=== PATIENT | female | born 1975 | race Caucasian/White ===

== ENCOUNTER 2017-05-08 17:35 | Emergency (ER) | payer SELFPAY ==
--- NOTE | ~2017-05-08 | ER ---
PATIENT'S NAME: KAYLYN OROURKE [facility] AGE: 42 Y [address] ROOM: [place] [id number] LOCATION: [facility] ADMIT DATE: 05/08/2017 ER/Outpatient Report DISCHARGE DATE: 05/08/2017 FAMILY PHYSICIAN: Yesy Jain APRN ATTENDING PHYSICIAN: Garret Foster TIME SEEN: 1750 hours. CHIEF COMPLAINT: Low back pain. HISTORY OF PRESENT ILLNESS: The patient is a 42-year-old female, who presents with back pain, started today. Denies any recent injury. She has had no radicular pain to her legs. No numbness or tingling to her legs. She denies any loss of tone or control of her bladder or bowel. She has had some previous history of chronic back pain. ALLERGIES: NO MEDICINAL ALLERGIES. HOME MEDICATIONS: Include: 1. Tylenol Extra Strength. 2. Levothyroxine. 3. Trazodone. 4. Hydroxyzine. 5. Lamotrigine. PAST MEDICAL HISTORY: Includes chronic anxiety, history of seizure disorder, hypothyroidism, and chronic back pain. SOCIAL HISTORY: Smoker of 6 cigarettes a day. Denies alcohol. REVIEW OF SYSTEMS: GENERAL: Denies any presence of fevers or chills. HEAD AND ENT: No complaints of headache, stiff neck, visual changes. RESPIRATORY: Denies shortness of breath or cough. CARDIOVASCULAR: No chest pain. GASTROINTESTINAL: No abdominal pain. No change in bowel habits. GENITOURINARY: No loss of urine or bladder tone. MUSCULOSKELETAL: Includes low back pain. Denies any pain to her lower PATIENT'S NAME: KAYLYN OROURKE [facility] AGE: 42 Y [address] ROOM: [place], [place] [id number] LOCATION: [facility] ADMIT DATE: 05/08/2017 ER/Outpatient Report DISCHARGE DATE: 05/08/2017 FAMILY PHYSICIAN: Yesy Jain APRN ATTENDING PHYSICIAN: Garret Foster extremities. NEUROLOGIC: No numbness or tingling involving her lower legs. OBJECTIVE: VITAL SIGNS: Her blood pressure was 151/75, her temperature is 99, her respiratory rate 16, pulse 92, her O2 saturations 97%. GENERAL APPEARANCE: Alert, no obvious distress. Posture appeared grossly normal. HEENT: Sclerae were clear. Buccal membranes moist. LUNGS: Clear at the bases. HEART: Regular rhythm. ABDOMEN: Soft. No masses. No pulsation. BACK: Slightly tender in the lumbar area. NEUROLOGIC: Sensation appeared normal to her lower extremities as well as reflexes were equal. ASSESSMENT: Low back pain. PLAN: She was given Toradol 60 IM for pain. Advised to continue her Tylenol. See her primary caregiver if pain does not improve. ELIZABETH BLOCK FOR MD KELI BARRY/nancy /[id number] d: t: 05/16/17 1605, OUTPATIENT REPORT
== END 2017-05-08 18:11 | disposition disaster alternative care site (69) ==
LOC: GMED 17:35
DX: M54.5 Low back pain (principal); F17.210 Nicotine dependence, cigarettes, uncomplicated; F41.9 Anxiety disorder, unspecified; E03.9 Hypothyroidism, unspecified; Z79.899 Other long term (current) drug therapy
CPT/HCPCS: J1885